=== PATIENT | male | born 1985 | race Hispanic/Latino ===

== ENCOUNTER 2019-04-10 01:31 | Emergency (ER) | payer OTHER ==
[2019-04-10] MEDS ORDERED: Iopamidol 612 MG/ML 100 ML Bottle IVPUSH ONE (01:38)
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
[2019-04-10] MEDS ORDERED: Lactated Ringers 1,000 ML ONE (01:59)
[2019-04-10] MEDS ORDERED: Lactated Ringers 1,000 ML IV ONE (02:13)
[2019-04-10] MEDS ORDERED: Diphtheria,Pertussis(Acell),Tetanus Vaccine 0.5 ML Syringe IM ONE (03:10)
--- NOTE | 2019-04-11 09:06 | CT ---
CT lumbar spine Technique: Multiple axial sections through the lumbar spine were obtained. Reconstructed coronal and sagittal images were obtained. Findings: Vertebral body heights and disc spaces are preserved. No fracture is identified. No bony central or bony neural foraminal stenosis is seen. No traumatic disc herniation is seen. Impression: 1. Nothing acute is appreciated on CT study of the lumbar spine. Diagnostic code #1 I agree with preliminary report from [facility], finalized on 04/10/19, 4:25 AM Central Time MTDD
--- NOTE | 2019-04-11 09:08 | CT ---
CT thoracic spine Technique: Multiple axial sections through the thoracic spine were obtained. Reconstructed coronal and sagittal images were obtained. Findings: Mild scoliosis is seen. Fusion is seen at several levels within the thoracic spine which is congenital. No fracture is seen. No abnormal subluxation is noted. Impression: 1. Congenital anomalies. Mild scoliosis. 2. Nothing acute is appreciated on CT study of the thoracic spine. Diagnostic code #2 I agree with preliminary report from [facility], finalized on 04/10/19, 3:56 AM Central Time [facility]
--- NOTE | 2019-04-11 09:42 | CT ---
CT cervical spine Technique: Multiple axial sections through the cervical spine were obtained. Reconstructed sagittal and coronal images were reviewed. Findings: Partial fusion is noted between the C6 and C7, C7 and T1 vertebral bodies compatible with congenital anomaly. Widening of the vertebral bodies is also noted in and AP dimension of C3 and C4 which is also congenital anomaly. No fracture is identified. No abnormal subluxation is seen. Incomplete posterior ring is noted at C5 and C6 as well as C7. No abnormal subluxation is seen. Scoliosis is present. Impression: 1. 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 Scoliosis. 2. Nothing acute is appreciated on CT study of the cervical spine. Diagnostic code #2 I agree with preliminary report from [facility], finalized on 04/10/19, 3:37 AM Central Time
--- NOTE | 2019-04-11 09:42 | CT ---
Head CT Technique: Multiple axial sections through the brain were obtained. Intravenous contrast was not utilized. Comparison: No prior intracranial imaging. Findings: Ventricles along with basal cisterns and sulci over the convexities are within normal limits for the patient's age. No abnormal parenchymal densities are seen. No evidence of intracranial hemorrhage. No midline shift or mass effect is seen. Bone window settings were reviewed which show some artifact within the nasal bone but there appears to be possible nasal bone fracture. No acute calvarial abnormality is otherwise seen. Visualized paranasal sinuses show nothing acute. Visualized mastoid sinuses also show nothing acute. Impression: 1. Nasal bone fracture. 2. No acute intracranial abnormality is shifted. Diagnostic code #3 I agree with preliminary report from [facility], finalized on 04/10/19, 3:32 AM Central Time
--- NOTE | 2019-04-11 10:21 | CT ---
CT chest Technique: Multiple axial sections through the chest are obtained. Intravenous contrast was utilized. Comparison: No prior chest CT. Findings: Aorta appears within normal limits. No mediastinal fluid is seen. Mediastinum and hilar region show no adenopathy. No axillary adenopathy is seen. No pericardial fluid is seen. Lungs are clear with no acute parenchymal change. No pleural effusions or pneumothorax is appreciated. No discrete rib fracture is appreciated. No discrete fracture seen within the thoracic spine. There is fusion of several levels of the thoracic bodies which is a developmental anomaly. Reconstructed sagittal images of the sternum appear to be intact. Slight deformity of several left upper ribs are seen which is congenital. Incidental note of mild symmetric gynecomastia. Impression: 1. Nothing acute is appreciated on CT study of the chest. Other incidental findings as noted above. Diagnostic code #2 I agree with preliminary report from [facility], finalized on 04/10/19, 3:[address] abdomen and pelvis Technique: Multiple axial sections were obtained from above the dome of the diaphragm inferiorly through the pubic symphysis. Intravenous contrast was utilized. No oral contrast was given. Comparison: No prior CT abdomen or pelvis exam. Artifact is noted from the patient's arms. Findings: Liver shows no discrete abnormality. Spleen appears within normal limits. Kidneys show symmetric contrast enhancement and show no additional abnormality. Adrenal glands show no nodule. Pancreas is within normal limits. Gallbladder contains no calcified gallstones. Aorta shows no aneurysm. No retroperitoneal adenopathy or mesenteric abnormalities are seen. No pelvic mass or adenopathy is seen. No free fluid or inflammatory change is seen. Appendix is seen and is normal in size. Bone window settings were reviewed which show nothing acute within the thoracic spine or pelvis. Impression: 1. Artifact due to the patient's arms. 2. Nothing acute is appreciated on CT study of the abdomen and pelvis. Diagnostic code #2 I agree with preliminary report from [facility], finalized on 04/10/19, 3:48 AM Central Time
== END 2019-04-10 03:53 | disposition home or self-care (01) ==
LOC: JD.ED 01:31
DX: S02.2XXA Fracture of nasal bones, initial encounter for closed fracture (principal); V49.50XA Passenger injured in collision with unspecified motor vehicles in traffic accident, initial encounter
CPT/HCPCS: 36415; 70450; 71260; 72125; 72128; 72131; 74177; 80053; 80306; 80320; 81001; 82150; 83605; 85025; 85610; 86850; 86900; 86901; 96360; 99285; J7120; Q9967; G0480